=== PATIENT | male | born 1985 | race Caucasian/White ===

== ENCOUNTER 2020-03-11 01:02 | Emergency (ER) | payer OTHER ==
[~2020-03-11] VITALS: Ht 180.3 cm; Wt 79.4 kg
[2020-03-11 01:14] VITALS: Ht 180.3 cm; Wt 79.4 kg
[2020-03-11 04:00] LABS: BASOPHIL % 0.2 % (0.2-1.5); PLATELET COUNT 230 x10^3mcL (152-348); RED CELL DISTRIBUTION WIDTH 13.6 % (12.1-16.2)
[2020-03-11 04:14] LABS: CALCIUM 8.9 mg/dL (8.5-10.1); CARBON DIOXIDE 21.4 mmol/L (21-32); CHLORIDE SERUM 106 mmol/L (98-107); CREATININE SERUM 1.2 mg/dL (0.7-1.3); GFR1 > 60 mL/min; GLUCOSE SERUM 91 mg/dL (74-106); POTASSIUM SERUM 3.3 mmol/L (3.5-5.1); SODIUM SERUM 144 mmol/L (136-145)
[2020-03-11 04:18] LABS: ALBUMIN 3.9 g/dL (3.4-5.0); TOTAL PROTEIN, SERUM 7.1 g/dL (6.4-8.2)
[2020-03-11 04:19] LABS: ALKALINE PHOSPHATASE 66 U/L (46-116); ALT/SGPT 36 U/L (16-63); AST/SGOT 30 U/L (15-37); BILIRUBIN TOTAL 0.5 mg/dL (0.20-1.00)
[2020-03-11 07:04] LABS: AMPHETAMINE QUAL UR NONE DETECTED (See below)
[2020-03-11 10:09] VITALS: BP 106/60
== END 2020-03-11 10:09 | disposition home or self-care (01) ==
LOC: ED 01:02
PROVIDERS: Emergency Medicine
DX: S09.90XA Unspecified injury of head, initial encounter (principal); F29 Unspecified psychosis not due to a substance or known physiological condition; F10.129 Alcohol abuse with intoxication, unspecified; Z20.828 Contact with and (suspected) exposure to other viral communicable diseases; X83.8XXA Intentional self-harm by other specified means, initial encounter; Y93.89 Activity, other specified; Y92.89 Other specified places as the place of occurrence of the external cause; Y99.8 Other external cause status
CPT/HCPCS: G0480; U0003